=== PATIENT | female | born 1950 | race Caucasian/White ===

== ENCOUNTER 2017-10-09 10:42 | Emergency (ER) | payer MEDICARE, BC ==
[~2017-10-09] VITALS: Ht 170.2 cm; Wt 56.8 kg
[2017-10-09 10:45] VITALS: BP 178/90; TEMP 98.4
[2017-10-09] MEDS ORDERED: HCTZ 25MG TAB25 MG PO (10:47)
[2017-10-09] MEDS ORDERED: NORCO 325 MG-51 TAB PO (11:59)
[2017-10-09 12:08] VITALS: PULSE 80
== END 2017-10-09 12:09 | disposition home or self-care (01) ==
LOC: COL.ER 10:42
DX: S52.501A Unspecified fracture of the lower end of right radius, initial encounter for closed fracture (principal); I10 Essential (primary) hypertension; W18.39XA Other fall on same level, initial encounter; Y92.39 Other specified sports and athletic area as the place of occurrence of the external cause
CPT/HCPCS: J1885; Q4050

== ENCOUNTER 2017-12-31 08:00 | Outpatient (RCR) | payer MEDICARE, BC ==
[~2017-12-31 08:00] MED LIST: HCTZ 25MG TAB25 MG PO; NORCO 325 MG-51 TAB PO
== END 2018-02-06 | disposition home or self-care (01) ==
LOC: WSOT
DX: S52.501D Unspecified fracture of the lower end of right radius, subsequent encounter for closed fracture with routine healing (principal); Z96.7 Presence of other bone and tendon implants
CPT/HCPCS: G8984-GO; G8985-GO; G8987-GO; G8988-GO; G8989-GO

== ENCOUNTER 2021-10-11 11:54 | Observation (INO) | payer MEDICARE, BC ==
[~2021-10-11] VITALS: Ht 170.2 cm; Wt 53.6 kg
[2021-10-11] VITALS (9 sets, daily range): BP systolic 101–148; BP diastolic 58–83; PULSE 72–103; TEMP 98.7–100.6
[2021-10-11 13:30] LABS: HEMOGLOBIN 12.1 g/dl (12.5-16.0); MEAN CELL VOLUME 94 fl (80.0-100.0); MEAN CORPUSCULAR HEMOGLOBIN 32 pg (27-31); MEAN CORPUSCULAR HGB CONC 34 g/dl (33.0-37.0); MEAN PLATELET VOLUME 9.3 fl (7.4-10.4); PLATELET COUNT 350 K/mm3 (130-400); RED BLOOD COUNT 3.79 M/mm3 (4.10-5.30); REDCELL DISTRIBUTION WIDTH-CV 12.4 % (11.5-14.5)
[2021-10-11 13:50] LABS: ALBUMIN 4.4 gm/dL (3.4-4.8); BILIRUBIN,TOTAL 1.4 mg/dL (0.2-1.2); CALCIUM 9.5 mg/dL (8.4-10.2); CREATININE, serum 0.73 mg/dL (0.57-1.11); POTASSIUM 3.1 mmol/L (3.5-4.5); TOTAL PROTEIN 7.4 gm/dL (6.2-8.1)
[2021-10-11 13:51] LABS: HEMATOCRIT 35.5 % (37.0-47.0)
[2021-10-11 13:54] LABS: BAND 12 % (0-10); LYMPHOCYTE 1 % (20.0-51.0); NEUTROPHILS 84 % (42.0-75.2); PLATELET ESTIMATE NORMAL (NORMAL)
[2021-10-11 14:11] LABS: COLLECTION METHOD CLEAN CATCH
[2021-10-11 14:18] LABS: MUCOUS Present (NOT PRESENT); PH 5 (5-8); SQUAMOUS EPITHELIAL 0-2 /hpf (0-10); URINE APPEARANCE Clear (CLEAR/HAZY); URINE BACTERIA None Seen /hpf (NONE SEEN); URINE BILIRUBIN Negative (NEGATIVE); URINE BLOOD 2+ (NEGATIVE); URINE COLOR Yellow (YELLOW); URINE GLUCOSE Negative (NEGATIVE); URINE KETONE 2+ (NEGATIVE); URINE LEUKOCYTE ESTERASE Negative (NEGATIVE); URINE NITRATE Negative (NEGATIVE); URINE PROTEIN(semi-quant) Negative (NEGATIVE); URINE RBC None Seen /hpf (0-2); URINE UROBILINOGEN Negative (NEGATIVE); URINE WBC 0-2 /hpf (0-2)
[2021-10-11] MEDS ORDERED: MOTRIN 600600 MG/TAB PO (16:55)
[2021-10-11] MEDS ORDERED: NORCO 325 MG-51 TAB PO (16:55)
[2021-10-11] MEDS ORDERED: AMOXICILLIN 8751 TAB PO (17:12)
--- NOTE | 2021-10-11 18:02 | NUR ---
PT ARRIVED TO ROOM FROM PACU @ 1725, IS A&0 X3, DENIES PAIN. PT IS PLEASANT, 3 LAP INCISIONS WELL APPROXIMATED, SKIN GLUE INTACT. PT DENIES NAUSEA, IS GIVEN ICE WATER ET SHOWN HOW TO ORDER DINNER. PT HAS FRIENDS @ BEDSIDE.
--- NOTE | 2021-10-11 20:30 | NUR ---
PT REPORTS FEELING BETTER AND WOULD LIKE TO GO HOME. IVF STOPPED TO R[facility]. HAS EATEN AND VOIDED WITHOUT PROBLEM. DENIES NAUSEA AND PAIN AT THIS TIME. TEMP=98.7.
--- NOTE | 2021-10-11 21:15 | NUR ---
REVIEWED DISCHARGE INSTRUCTIONS WITH PATIENT. PROVIDED TAKE HOME PACK OF NORCO #4 AND TAKE HOME AUGMENTIN #2 WITH INSTRUCTION ON USAGE.
--- NOTE | 2021-10-11 21:45 | NUR ---
PT TAKEN VIA W/C TO PRIVATE CAR. PERSONAL BELONGINGS AND COPY OF DISCHARGE INSTRUCTIONS SENT WITH PATIENT.
== END 2021-10-11 21:45 | disposition home or self-care (01) ==
LOC: COL.ER 11:54 → SURG 15:26
PROVIDERS: Emergency Medicine; ADMIT Surgery
DX: K35.32 Acute appendicitis with perforation, localized peritonitis, and gangrene, without abscess (principal); I10 Essential (primary) hypertension
CPT/HCPCS: J1100; J2270; J2405; J2543; J2704; J3010; J7040; Q9967

== ENCOUNTER 2023-09-26 07:10 | Emergency (ER) | payer MEDICARE, BC ==
[~2023-09-26] VITALS: Ht 170.2 cm; Wt 53.6 kg
[~2023-09-26 07:10] MED LIST changes: +AMOXICILLIN 8751 TAB PO; +MOTRIN 600600 MG/TAB PO
[2023-09-26 07:25] VITALS: TEMP 97.7
[2023-09-26] MEDS ORDERED: NS 1,000 ML IV ONE (07:45)
[2023-09-26 07:53] LABS: BASO # 0.1 K/mm3 (0.0-0.2); BASO % 2.6 % (0.0-2.0); EOS # 0.3 K/mm3 (0.0-0.7); EOS % 5.6 % (0.0-4.0); GRAN # 2.4 K/mm3 (1.4-6.5); GRAN % 48.5 % (42.2-75.2); HEMATOCRIT 38.3 % (37.0-47.0); HEMOGLOBIN 12.8 g/dl (12.5-16.0); LYMPH # 1.8 K/mm3 (1.2-3.4); LYMPH % 35.3 % (20.0-51.0); MEAN CELL VOLUME 96 fl (80.0-100.0); MEAN CORPUSCULAR HEMOGLOBIN 32 pg (27-31); MEAN CORPUSCULAR HGB CONC 33 g/dl (33.0-37.0); MEAN PLATELET VOLUME 9.7 fl (7.4-10.4); MONO # 0.4 K/mm3 (0.1-0.6); MONO % 7.8 % (1.7-9.3); PLATELET COUNT 284 K/mm3 (130-400); RED BLOOD COUNT 3.98 M/mm3 (4.10-5.30); REDCELL DISTRIBUTION WIDTH-CV 11.9 % (11.5-14.5)
[2023-09-26] MEDS ORDERED: Doxycycline Monohydrate 100 MG CAP PO ONE (08:00)
[2023-09-26] MEDS ORDERED: Meclizine 25 MG TAB PO ONE (08:00)
[2023-09-26 08:09] LABS: ALBUMIN 4.5 g/dL (3.4-4.8); CALCIUM 9.1 mg/dL (8.4-10.2); CREATININE, serum 0.81 mg/dL (0.57-1.11); POTASSIUM 3.7 mEq/L (3.5-4.5); TOTAL PROTEIN 7.4 g/dl (6.2-8.1)
[2023-09-26] MEDS ORDERED: DOXYCYCLINE HY100 MG PO (09:19)
[2023-09-26 09:29] VITALS: BP 164/97; PULSE 59
== END 2023-09-26 09:35 | disposition home or self-care (01) ==
LOC: COL.ER 07:10
PROVIDERS: Emergency Medicine
DX: S30.860A Insect bite (nonvenomous) of lower back and pelvis, initial encounter (principal); R42 Dizziness and giddiness; I10 Essential (primary) hypertension; W57.XXXA Bitten or stung by nonvenomous insect and other nonvenomous arthropods, initial encounter
CPT/HCPCS: J7030